=== PATIENT | male | born 1935 | race Caucasian/White ===

== ENCOUNTER → 2018-06-11 | Outpatient (CLI) | payer OTHER ==
[~2018-06-11] MED LIST: ASPI-650 PO; ATOR20TA PO; CARV12.52 PO; DOXA1TAB2 PO; ERGO500017 PO; FURO-92 PO; HYDR12.53 PO; LISI-170 PO; MAGNESIUM DR64 MG PO; MULT-750 PO; OMNIPAQUE 350 MG/ML, 100ML BOTTLE ONE; POTA20TA14 PO; SODI650T PO; SPIR25TA PO
== END | disposition home or self-care (01) ==
LOC: CFH 09:25
PROVIDERS: ATTEND Family Medicine
DX: N28.89 Other specified disorders of kidney and ureter (principal); K44.9 Diaphragmatic hernia without obstruction or gangrene; J90 Pleural effusion, not elsewhere classified; M47.9 Spondylosis, unspecified
CPT/HCPCS: 74178; 82565; Q9967

== ENCOUNTER 2019-10-02 16:30 | Inpatient (IN) | payer MEDICARE, OTHER ==
[~2019-10-02] VITALS: Ht 170.2 cm; Wt 77.4 kg
[~2019-10-02 16:30] MED LIST changes: +HYDR12.517 PO; -HYDR12.53 PO; -OMNIPAQUE 350 MG/ML, 100ML BOTTLE ONE
--- NOTE | 2019-10-02 17:00 | NUR ---
THIS IS A 84 YO MALE COMING IN FOR LOW SODIUM LEVELS AND FATIGUE. PATIENT HAD RECENT LABS DRAWN FROM PRIMARY CARE, THEY CALLED HIM TODAY AND TOLD HIM TO GO TO THE ER TO GET CHECKED OUT. PATIENT HAD HX OF CHF, TAKES BOTH SODIUM PILLS AT HOME AND LASIX. PATIETN HAS HX OF HTN, AND PRE-DIABETES. 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 CONTINUOUS SPO2 AT 97%, CYCLE BP Q1HR. FAMILY IN ROOM, PATIENT EDUCATED NEED FOR URINE SAMPLE. DENIES NEEDS AT THIS TIME, CALL LIGHT IN REACH.
[2019-10-02 17:44] LABS: BASOPHILS # (AUTO) 0.01 x10^3/uL (0-0.1); BASOPHILS % (AUTO) 0 % (0-1); EOSINOPHILS # (AUTO) 0.13 x10^3/uL (0-0.4); EOSINOPHILS % (AUTO) 3 % (1-7); LYMPHOCYTES # (AUTO) 0.43 x10^3/uL (1-3.4); LYMPHOCYTES % (AUTO) 9 % (22-44); MD NO; MEAN CORPUSCULAR HGB CONC 32.6 g/dL (33.2-36.2); MEAN CORPUSCULAR VOLUME 95.2 fL (81-97); MONOCYTES # (AUTO) 0.68 x10^3/uL (0.2-0.8); MONOCYTES % (AUTO) 14 % (2-9); NEUTROPHILS # (AUTO) 3.73 x10^3/uL (1.8-6.8); NEUTROPHILS % (AUTO) 75 % (42-75); PLATELET COUNT 147 x10^3/uL (130-400); RED BLOOD COUNT 4.03 x10^6/uL (4.38-5.82); RED CELL DISTRIBUTION WIDTH 15.4 % (9.4-14.8)
[2019-10-02 17:52] LABS: ALANINE AMINOTRANSFERASE 60 U/L (12-78); ALBUMIN 3.7 g/dL (3.4-5.0); ANION GAP 9 mmol/L (5-15); CALCIUM 8.4 mg/dL (8.5-10.1); CHLORIDE 91 mmol/L (98-107)
[2019-10-02 17:55] LABS: ALKALINE PHOSPHATASE 140 U/L (45-117); BILIRUBIN,TOTAL 1.1 mg/dL (0.2-1.0); CREATININE 1.03 mg/dL (0.7-1.3); TOTAL PROTEIN 6.6 g/dL (6.4-8.2)
[2019-10-02 18:07] LABS: MICROSCOPIC NOT IND
[2019-10-02 18:12] LABS: CULTURE INDICATED? NO
--- NOTE | 2019-10-02 18:32 | NUR ---
PATIENT RESTING ON GURNEY, RESPIRATIONS EVEN AND UNLABORED, FAMILY IN ROOM, DENIES NEEDS AT THIS TIME, CALL LIGHT IN REACH. AWAITING UA RESULTS.
[2019-10-02] MEDS ORDERED: SODI325T PO (18:54)
[2019-10-02] MEDS ORDERED: SODIUM CHLORIDE 0.9% 1,000 ML IV SCH (19:00)
--- NOTE | 2019-10-02 19:02 | NUR ---
IVF STARTED WITH DILAFLOW. AWAITING ADMIT ROOM ASSIGNMENT. CALL LIGHT IN REACH, VSS, DENIES NEEDS AT THIS TIME.
--- NOTE | 2019-10-02 20:10 | NUR ---
REPORT GIVEN TO PRESTON JORDAN. PLAN OF CARE DISCUSSED.
[2019-10-02] MEDS ORDERED: SPIRONOLACTONE 25 MG TABLET PO SCH (21:00)
[2019-10-02] MEDS ORDERED: DOCUSATE 100 MG CAPSULE PO PRN (21:00)
[2019-10-02] MEDS ORDERED: LISINOPRIL 20 MG TABLET PO SCH (21:00)
[2019-10-02] MEDS ORDERED: ONDANSETRON ODT 4 MG PO PRN (21:00)
[2019-10-02] MEDS ORDERED: ACETAMINOPHEN 325 MG TABLET PO PRN (21:00)
[2019-10-02] MEDS: ATORVASTATIN 20 MG TABLET PO SCH (21:00)
[2019-10-02] MEDS ORDERED: FUROSEMIDE 40 MG TABLET PO SCH (21:00)
[2019-10-02] MEDS ORDERED: ERGOCALCIFEROL 50,000 UNIT CAPSULE PO SCH (21:00)
[2019-10-02 21:46] VITALS: BP 110/67
[2019-10-02] MEDS: CARVEDILOL 12.5 MG TABLET PO SCH (22:03)
[2019-10-02] MEDS: ENOXAPARIN 40 MG/0.4 ML SQ SCH (22:04)
[2019-10-02] MEDS: SODIUM CHLORIDE 0.9% 1,000 ML IV SCH (22:04)
[2019-10-03 00:28] LABS: ANION GAP 6 mmol/L (5-15); CALCIUM 8.1 mg/dL (8.5-10.1); CHLORIDE 92 mmol/L (98-107); CREATININE 1.07 mg/dL (0.7-1.3)
[2019-10-03 01:40] LABS: POTASSIUM,URINE RANDOM 63 mmol/L; SODIUM,URINE RANDOM 22 mmol/L
[2019-10-03 01:41] LABS: CHLORIDE,URINE RANDOM < 10 mmol/L
[2019-10-03 01:56] VITALS: BP 105/67
[2019-10-03 02:54] LABS: OSMOLALITY,URINE 618 mOsm/kg (500-850)
[2019-10-03] MEDS: ASPIRIN 325 MG TABLET EC PO SCH (05:02)
[2019-10-03] MEDS: SODIUM CHLORIDE 0.9% 1,000 ML IV SCH (05:03)
[2019-10-03 05:43] LABS: BASOPHILS # (AUTO) 0.02 x10^3/uL (0-0.1); BASOPHILS % (AUTO) 1 % (0-1); EOSINOPHILS # (AUTO) 0.13 x10^3/uL (0-0.4); EOSINOPHILS % (AUTO) 4 % (1-7); LYMPHOCYTES # (AUTO) 0.53 x10^3/uL (1-3.4); LYMPHOCYTES % (AUTO) 15 % (22-44); MD NO; MEAN CORPUSCULAR HEMOGLOBIN 30.6 pg (27.5-34.5); MEAN CORPUSCULAR HGB CONC 33.1 g/dL (33.2-36.2); MEAN CORPUSCULAR VOLUME 92.5 fL (81-97); MEAN PLATELET VOLUME 7.6 fL (7.4-10.4); MONOCYTES # (AUTO) 0.57 x10^3/uL (0.2-0.8); MONOCYTES % (AUTO) 16 % (2-9); NEUTROPHILS # (AUTO) 2.32 x10^3/uL (1.8-6.8); NEUTROPHILS % (AUTO) 65 % (42-75); PLATELET COUNT 119 x10^3/uL (130-400); RED BLOOD COUNT 3.67 x10^6/uL (4.38-5.82); RED CELL DISTRIBUTION WIDTH 15.5 % (9.4-14.8)
[2019-10-03 05:56] LABS: ANION GAP 10 mmol/L (5-15); CHLORIDE 94 mmol/L (98-107); CREATININE 0.94 mg/dL (0.7-1.3)
[2019-10-03 06:54] VITALS: BP 111/67
[2019-10-03] MEDS: DOXAZOSIN 2MG TABLET PO SCH (09:00)
[2019-10-03] MEDS: LISINOPRIL 5 MG TABLET PO SCH ×2 (09:00→21:02)
[2019-10-03] MEDS ORDERED: DOXAZOSIN 2MG TABLET PO SCH (09:00)
[2019-10-03] MEDS: CARVEDILOL 12.5 MG TABLET PO SCH ×2 (09:00→21:02)
[2019-10-03 09:04] LABS: TROPONIN I 0.041 ng/mL (0.000-0.045)
[2019-10-03 09:25] LABS: TROPONIN I 0.037 ng/mL (0.000-0.045)
[2019-10-03 10:16] LABS: ANION GAP 10 mmol/L (5-15); CALCIUM 8.4 mg/dL (8.5-10.1); CHLORIDE 95 mmol/L (98-107); CREATININE 1.06 mg/dL (0.7-1.3)
[2019-10-03] MEDS: SODIUM BICARBONATE 650 MG TABLET PO SCH (11:41)
[2019-10-03] MEDS: MULTIVITAMIN 1 TABLET PO SCH (11:41)
[2019-10-03 14:12] VITALS: BP 120/67
[2019-10-03 15:39] LABS: ANION GAP 9 mmol/L (5-15); CALCIUM 8.3 mg/dL (8.5-10.1); CHLORIDE 95 mmol/L (98-107); CREATININE 1.07 mg/dL (0.7-1.3)
[2019-10-03 20:03] VITALS: BP 125/75
[2019-10-03 20:20] LABS: ANION GAP 6 mmol/L (5-15); CALCIUM 8.5 mg/dL (8.5-10.1); CHLORIDE 95 mmol/L (98-107)
[2019-10-03 20:22] LABS: CREATININE 1.09 mg/dL (0.7-1.3)
[2019-10-03] MEDS: ATORVASTATIN 20 MG TABLET PO SCH (21:00)
[2019-10-03] MEDS: ENOXAPARIN 40 MG/0.4 ML SQ SCH (21:02)
[2019-10-03] MEDS: TEMAZEPAM 15 MG CAPSULE PO PRN (23:03)
[2019-10-04 01:09] LABS: ANION GAP 6 mmol/L (5-15); CALCIUM 8.3 mg/dL (8.5-10.1); CHLORIDE 96 mmol/L (98-107); CREATININE 0.93 mg/dL (0.7-1.3)
[2019-10-04 01:12] VITALS: BP 102/60
[2019-10-04 05:18] LABS: BASOPHILS # (AUTO) 0.03 x10^3/uL (0-0.1); BASOPHILS % (AUTO) 1 % (0-1); EOSINOPHILS # (AUTO) 0.16 x10^3/uL (0-0.4); EOSINOPHILS % (AUTO) 4 % (1-7); LYMPHOCYTES # (AUTO) 0.61 x10^3/uL (1-3.4); LYMPHOCYTES % (AUTO) 15 % (22-44); MD NO; MEAN CORPUSCULAR HEMOGLOBIN 31.2 pg (27.5-34.5); MEAN CORPUSCULAR HGB CONC 33.1 g/dL (33.2-36.2); MEAN CORPUSCULAR VOLUME 94.2 fL (81-97); MEAN PLATELET VOLUME 8.1 fL (7.4-10.4); MONOCYTES # (AUTO) 0.61 x10^3/uL (0.2-0.8); MONOCYTES % (AUTO) 15 % (2-9); NEUTROPHILS # (AUTO) 2.79 x10^3/uL (1.8-6.8); NEUTROPHILS % (AUTO) 66 % (42-75); PLATELET COUNT 131 x10^3/uL (130-400)
[2019-10-04] MEDS: ASPIRIN 325 MG TABLET EC PO SCH (05:28)
[2019-10-04 05:29] LABS: ALANINE AMINOTRANSFERASE 44 U/L (12-78); ALBUMIN 3.4 g/dL (3.4-5.0); ANION GAP 10 mmol/L (5-15); CALCIUM 8.5 mg/dL (8.5-10.1); CHLORIDE 96 mmol/L (98-107); CREATININE 0.86 mg/dL (0.7-1.3)
[2019-10-04 05:32] LABS: ALKALINE PHOSPHATASE 114 U/L (45-117); BILIRUBIN,TOTAL 1.2 mg/dL (0.2-1.0); TOTAL PROTEIN 6.1 g/dL (6.4-8.2)
[2019-10-04 07:05] VITALS: BP 122/73
[2019-10-04] MEDS: SODIUM BICARBONATE 650 MG TABLET PO SCH (08:51)
[2019-10-04] MEDS: CARVEDILOL 12.5 MG TABLET PO SCH ×2 (08:52→21:14)
[2019-10-04] MEDS: LISINOPRIL 5 MG TABLET PO SCH ×2 (08:52→21:14)
[2019-10-04] MEDS: MULTIVITAMIN 1 TABLET PO SCH (08:52)
[2019-10-04] MEDS: DOXAZOSIN 2MG TABLET PO SCH (08:59)
[2019-10-04 14:03] VITALS: BP 96/58
[2019-10-04 20:18] VITALS: BP 121/70
[2019-10-04] MEDS: ATORVASTATIN 20 MG TABLET PO SCH (21:00)
[2019-10-04] MEDS: TEMAZEPAM 15 MG CAPSULE PO PRN (21:14)
[2019-10-04] MEDS: ENOXAPARIN 40 MG/0.4 ML SQ SCH (21:15)
[2019-10-05 03:02] VITALS: BP 131/74
[2019-10-05] MEDS: ASPIRIN 325 MG TABLET EC PO SCH (05:49)
[2019-10-05 06:52] LABS: BASOPHILS # (AUTO) 0.02 x10^3/uL (0-0.1); BASOPHILS % (AUTO) 0 % (0-1); EOSINOPHILS # (AUTO) 0.18 x10^3/uL (0-0.4); EOSINOPHILS % (AUTO) 4 % (1-7); LYMPHOCYTES # (AUTO) 0.66 x10^3/uL (1-3.4); LYMPHOCYTES % (AUTO) 15 % (22-44); MD NO; MEAN CORPUSCULAR HGB CONC 32.5 g/dL (33.2-36.2); MEAN CORPUSCULAR VOLUME 95.4 fL (81-97); MEAN PLATELET VOLUME 8.4 fL (7.4-10.4); MONOCYTES # (AUTO) 0.63 x10^3/uL (0.2-0.8); MONOCYTES % (AUTO) 14 % (2-9); NEUTROPHILS # (AUTO) 3.01 x10^3/uL (1.8-6.8); NEUTROPHILS % (AUTO) 67 % (42-75); PLATELET COUNT 129 x10^3/uL (130-400); RED BLOOD COUNT 4.07 x10^6/uL (4.38-5.82); RED CELL DISTRIBUTION WIDTH 15.6 % (9.4-14.8)
[2019-10-05 07:02] LABS: CHLORIDE 97 mmol/L (98-107)
[2019-10-05 07:09] LABS: ALANINE AMINOTRANSFERASE 40 U/L (12-78); ALBUMIN 3.6 g/dL (3.4-5.0); ALKALINE PHOSPHATASE 110 U/L (45-117); ANION GAP 7 mmol/L (5-15); BILIRUBIN,TOTAL 1.2 mg/dL (0.2-1.0); CALCIUM 8.8 mg/dL (8.5-10.1); CREATININE 0.94 mg/dL (0.7-1.3); TOTAL PROTEIN 6.4 g/dL (6.4-8.2)
[2019-10-05 07:10] VITALS: BP 146/84
[2019-10-05] MEDS ORDERED: ACETAMINOPHEN 325 MG TABLET PO PRN (08:30)
[2019-10-05] MEDS ORDERED: REGADENOSON 0.4 MG/5 ML SYRINGE ONE (08:30)
[2019-10-05] MEDS ORDERED: FUROSEMIDE 20 MG TABLET PO SCH (09:00)
[2019-10-05 10:39] VITALS: BP 143/91
[2019-10-05] MEDS: CARVEDILOL 12.5 MG TABLET PO SCH ×2 (10:50→21:01)
[2019-10-05] MEDS: MULTIVITAMIN 1 TABLET PO SCH (10:50)
[2019-10-05] MEDS: DOXAZOSIN 2MG TABLET PO SCH (10:51)
[2019-10-05] MEDS: FUROSEMIDE 20 MG TABLET PO SCH (10:51)
[2019-10-05] MEDS: LISINOPRIL 5 MG TABLET PO SCH ×2 (10:52→21:01)
[2019-10-05] MEDS ORDERED: FURO20TA3 PO ×2 (13:37)
[2019-10-05] MEDS ORDERED: HYDR-3341 PO ×2 (13:37)
[2019-10-05] MEDS ORDERED: LISI5TAB7 PO ×2 (13:37)
[2019-10-05 13:40] VITALS: BP 117/74
[2019-10-05 19:28] VITALS: BP 132/75
[2019-10-05 20:58] VITALS: BP 127/71
[2019-10-05] MEDS: ATORVASTATIN 20 MG TABLET PO SCH (21:00)
[2019-10-05] MEDS: ENOXAPARIN 40 MG/0.4 ML SQ SCH (21:00)
[2019-10-05] MEDS: TEMAZEPAM 15 MG CAPSULE PO PRN (22:56)
[2019-10-06 01:50] VITALS: BP 110/69
[2019-10-06] MEDS: ASPIRIN 325 MG TABLET EC PO SCH (05:33)
[2019-10-06 06:39] LABS: ALBUMIN 3.3 g/dL (3.4-5.0); ANION GAP 9 mmol/L (5-15); CALCIUM 8.5 mg/dL (8.5-10.1); CHLORIDE 97 mmol/L (98-107)
[2019-10-06 06:45] LABS: ALANINE AMINOTRANSFERASE 34 U/L (12-78); ALKALINE PHOSPHATASE 103 U/L (45-117); BILIRUBIN,TOTAL 1.2 mg/dL (0.2-1.0); CREATININE 0.76 mg/dL (0.7-1.3); TOTAL PROTEIN 6.1 g/dL (6.4-8.2)
[2019-10-06 08:06] VITALS: BP 144/53
[2019-10-06] MEDS: DOXAZOSIN 2MG TABLET PO SCH (09:18)
[2019-10-06] MEDS: MULTIVITAMIN 1 TABLET PO SCH (09:18)
[2019-10-06] MEDS: CARVEDILOL 12.5 MG TABLET PO SCH ×2 (09:18→21:54)
[2019-10-06] MEDS: FUROSEMIDE 20 MG TABLET PO SCH (09:19)
[2019-10-06] MEDS: LISINOPRIL 5 MG TABLET PO SCH ×2 (09:20→21:54)
[2019-10-06] MEDS ORDERED: SODIUM CHLORIDE 0.9% 1,000 ML IV SCH ×3 (10:30→11:00)
[2019-10-06 13:00] VITALS: BP 125/72
[2019-10-06] MEDS ORDERED: LIDOCAINE-MPF 1%, 5ML ONE (14:08)
[2019-10-06] MEDS ORDERED: FENTANYL PF 100 MCG/2ML ONE (14:08)
[2019-10-06] MEDS ORDERED: MIDAZOLAM 1 MG/ML, 2ML ONE (14:08)
[2019-10-06] MEDS ORDERED: VERAPAMIL 2.5 MG/ML, 2ML ONE (14:08)
[2019-10-06] MEDS ORDERED: HEPARIN 1,000 UNITS/ML, 10ML ONE (14:08)
[2019-10-06] MEDS ORDERED: LIDOCAINE 1%, 20ML ONE (14:57)
[2019-10-06] MEDS ORDERED: BIVALIRUDIN 250 MG ONE (15:13)
[2019-10-06] MEDS ORDERED: TICAGRELOR 90 MG TABLET ONE (15:19)
[2019-10-06] MEDS ORDERED: LORazepam 2 MG/ML, 1ML IVPush ONE ×2 (17:00)
[2019-10-06] MEDS ORDERED: ALBUTEROL/IPRATROPIUM 2.5MG/0.5MG, 3 ML ONE (17:09)
[2019-10-06] MEDS ORDERED: FUROSEMIDE 20 MG/2 ML IV PRN (17:30)
[2019-10-06] MEDS ORDERED: CLOPIDOGREL 75 MG TABLET PO ONE (17:30)
[2019-10-06] MEDS ORDERED: ALBUTEROL/IPRATROPIUM 2.5MG/0.5MG, 3 ML NPPB PRN (18:00)
[2019-10-06 18:46] VITALS: BP 135/74
[2019-10-06] MEDS: ENOXAPARIN 40 MG/0.4 ML SQ SCH (20:26)
[2019-10-06] MEDS: ATORVASTATIN 40 MG TABLET PO SCH (21:00)
[2019-10-06] MEDS ORDERED: TICAGRELOR 90 MG TABLET PO ONE (21:00)
[2019-10-06 21:11] VITALS: BP 143/79
[2019-10-06 21:51] VITALS: BP 128/77
[2019-10-06] MEDS: TEMAZEPAM 15 MG CAPSULE PO PRN (23:07)
[2019-10-07] VITALS (7 sets, daily range): BP systolic 95–151; BP diastolic 59–88
[2019-10-07 05:01] LABS: ANION GAP 9 mmol/L (5-15); CALCIUM 8.6 mg/dL (8.5-10.1); CHLORIDE 97 mmol/L (98-107); CHOLESTEROL, TOTAL 131 mg/dL (140-239); CREATININE 0.88 mg/dL (0.7-1.3); TRIGLYCERIDES 63 mg/dL (50-200); VLDL CHOLESTEROL 13 mg/dL (0-25)
[2019-10-07 05:05] LABS: CHOL/HDL RATIO 1.9; HDL CHOL % 53 % (26-37); HDL CHOLESTEROL (DIRECT) 70 mg/dL (40-60); LDL CHOLESTEROL,CALCULATED 48 mg/dL (54-169); LDL/HDL RATIO 0.7 (0.5-3.0)
[2019-10-07] MEDS: CARVEDILOL 12.5 MG TABLET PO SCH (09:34)
[2019-10-07] MEDS: DOXAZOSIN 2MG TABLET PO SCH (09:35)
[2019-10-07] MEDS: ASPIRIN 81 MG TABLET EC PO SCH (09:36)
[2019-10-07] MEDS: LISINOPRIL 5 MG TABLET PO SCH ×2 (09:36→14:29)
[2019-10-07] MEDS: MULTIVITAMIN 1 TABLET PO SCH (09:37)
[2019-10-07] MEDS: FUROSEMIDE 20 MG TABLET PO SCH (09:37)
[2019-10-07] MEDS: CLOPIDOGREL 75 MG TABLET PO SCH (09:37)
[2019-10-07] MEDS ORDERED: FUROSEMIDE 40 MG/4 ML IV ONE (14:00)
[2019-10-07] MEDS: CARVEDILOL 25 MG TABLET PO SCH (17:50)
[2019-10-07] MEDS: ATORVASTATIN 40 MG TABLET PO SCH (21:00)
[2019-10-07] MEDS: ENOXAPARIN 40 MG/0.4 ML SQ SCH (21:42)
[2019-10-07] MEDS: TEMAZEPAM 15 MG CAPSULE PO PRN (22:53)
[2019-10-08 00:27] VITALS: BP 98/58
[2019-10-08] MEDS: TEMAZEPAM 15 MG CAPSULE PO PRN ×2 (02:30→23:23)
[2019-10-08 05:27] LABS: ANION GAP 6 mmol/L (5-15); CALCIUM 8.3 mg/dL (8.5-10.1); CHLORIDE 97 mmol/L (98-107); CREATININE 0.84 mg/dL (0.7-1.3)
[2019-10-08 06:17] VITALS: BP 117/79
[2019-10-08] MEDS: CARVEDILOL 25 MG TABLET PO SCH ×2 (06:20→18:04)
[2019-10-08 07:19] VITALS: BP 110/67
[2019-10-08 09:45] VITALS: BP 103/63
[2019-10-08] MEDS: LISINOPRIL 5 MG TABLET PO SCH (09:45)
[2019-10-08] MEDS: DOXAZOSIN 2MG TABLET PO SCH (09:45)
[2019-10-08] MEDS: CLOPIDOGREL 75 MG TABLET PO SCH (09:58)
[2019-10-08] MEDS: ASPIRIN 81 MG TABLET EC PO SCH (09:58)
[2019-10-08] MEDS: MULTIVITAMIN 1 TABLET PO SCH (09:58)
[2019-10-08 13:56] VITALS: BP 105/62
[2019-10-08 20:08] VITALS: BP 100/64
[2019-10-08] MEDS: ENOXAPARIN 40 MG/0.4 ML SQ SCH (20:46)
[2019-10-08] MEDS: ATORVASTATIN 40 MG TABLET PO SCH (20:46)
[2019-10-09 00:44] VITALS: BP 102/59
[2019-10-09 01:31] LABS: ANION GAP 5 mmol/L (5-15); CALCIUM 8.4 mg/dL (8.5-10.1); CHLORIDE 97 mmol/L (98-107)
[2019-10-09] MEDS: CARVEDILOL 25 MG TABLET PO SCH (05:27)
[2019-10-09 06:37] VITALS: BP 115/72
[2019-10-09] MEDS ORDERED: POTASSIUM CHLORIDE 20 MEQ TAB.ER.PRT PO SCH (08:00)
[2019-10-09] MEDS: CLOPIDOGREL 75 MG TABLET PO SCH (08:12)
[2019-10-09] MEDS: ASPIRIN 81 MG TABLET EC PO SCH (08:13)
[2019-10-09] MEDS: MULTIVITAMIN 1 TABLET PO SCH (08:13)
[2019-10-09] MEDS: LISINOPRIL 5 MG TABLET PO SCH (08:14)
[2019-10-09] MEDS: DOXAZOSIN 2MG TABLET PO SCH (08:14)
[2019-10-09] MEDS ORDERED: FUROSEMIDE 40 MG TABLET PO SCH (09:00)
[2019-10-09] MEDS ORDERED: ATOR40TA78 PO (11:00)
[2019-10-09] MEDS ORDERED: CLOP75TA PO (11:00)
[2019-10-09] MEDS ORDERED: DOXA2TAB9 PO (11:00)
[2019-10-09] MEDS ORDERED: LISI5TAB7 PO (11:00)
[2019-10-09] MEDS ORDERED: FURO40TA6 PO (11:00)
[2019-10-09] MEDS ORDERED: ASPI81TA45 PO (11:00)
== END 2019-10-09 12:31 | disposition home or self-care (01) | DRG 246 ==
LOC: ED 19:00 → EDIP 20:06 → 4EST 20:37 → 5SO 10-06 15:58 → DCLOUNGE 10-09 12:10
PROVIDERS: ADMIT Internal Medicine; ATTEND Internal Medicine
PROC: 027035Z Dilation of Coronary Artery, One Artery with Two Drug-eluting Intraluminal Devices, Percutaneous Approach (ICD-10-PCS; principal; 2019-10-06)
PROC: 4A023N8 Measurement of Cardiac Sampling and Pressure, Bilateral, Percutaneous Approach (ICD-10-PCS; 2019-10-06)
PROC: B211YZZ Fluoroscopy of Multiple Coronary Arteries using Other Contrast (ICD-10-PCS; 2019-10-06)
PROC: B215YZZ Fluoroscopy of Left Heart using Other Contrast (ICD-10-PCS; 2019-10-06)
DX: I13.0 Hypertensive heart and chronic kidney disease with heart failure and stage 1 through stage 4 chronic kidney disease, or unspecified chronic kidney disease (principal); I50.33 Acute on chronic diastolic (congestive) heart failure; R17 Unspecified jaundice; I47.2 Ventricular tachycardia; E87.1 Hypo-osmolality and hyponatremia; I25.10 Atherosclerotic heart disease of native coronary artery without angina pectoris; D64.9 Anemia, unspecified; N18.3 Chronic kidney disease, stage 3 (moderate); E11.22 Type 2 diabetes mellitus with diabetic chronic kidney disease; I50.82 Biventricular heart failure; I42.9 Cardiomyopathy, unspecified; I27.29 Other secondary pulmonary hypertension; N40.0 Benign prostatic hyperplasia without lower urinary tract symptoms; R74.0 Nonspecific elevation of levels of transaminase and lactic acid dehydrogenase [LDH]; I08.1 Rheumatic disorders of both mitral and tricuspid valves; E78.5 Hyperlipidemia, unspecified; D69.6 Thrombocytopenia, unspecified; I27.81 Cor pulmonale (chronic); F12.10 Cannabis abuse, uncomplicated; F41.9 Anxiety disorder, unspecified; Z85.828 Personal history of other malignant neoplasm of skin; Z79.899 Other long term (current) drug therapy
CPT/HCPCS: 36415; 71046; 78452; 80048; 80053; 80061; 81003; 82436; 83735; 83880; 83930; 83935; 84100; 84133; 84300; 84484; 85014; 85018; 85025; 93005; 93017; 93306; 93460; 94640; 99156; 99157; C1760; C1769; C1894; C9600; G0378; J0583; J1644; J1650; J1940; J2250; J2785; J3010; A9502; C1725; C1874; C1887; J2060; J7030; Q9967

== ENCOUNTER 2019-11-06 13:59 | Observation (INO) | payer MEDICARE ==
[~2019-11-06] VITALS: Ht 170.2 cm; Wt 73.0 kg
[~2019-11-06 13:59] MED LIST changes: +ASPI81TA45 PO; +ATOR40TA78 PO; +CLOP75TA PO; +DOXA2TAB9 PO; +FURO20TA3 PO; +FURO40TA6 PO; +HYDR-3341 PO; +LISI5TAB7 PO; +SODI325T PO
--- NOTE | 2019-11-06 14:35 | NUR ---
PATIENT ABULATED TO THE BATHROOM USING A CANE WITH A STEADY GAIT. URINE COLLECTED.
--- NOTE | 2019-11-06 14:43 | NUR ---
THIS IS AN 84 YO M WHO WAS ADVISED BY HIS PRIMARY CARE TO COME IN TO THE ED BECAUSE THEY "DIDNT LIKE MY RHYTHM". PATIENT HAS NO COMPLAINTS AT THIS TIME. DENIES CP/SOB. STATES THAT HE HAD 2 STENTS PLACED IN SEPTEMBER. PATIENTS RESPIRATIONS ARE EVEN AND UNLABORED. PATIENTS VS STABLE. PATIENT IS IN NO ACUTE DISTRESS. RESTING ON GURNEY WITH FAMILY AT BEDSIDE. DENIES FURTHER NEEDS AT THIS TIME.
[2019-11-06 15:31] LABS: ALBUMIN 3.6 g/dL (3.4-5.0); ANION GAP 7 mmol/L (5-15); CALCIUM 8.8 mg/dL (8.5-10.1); CHLORIDE 99 mmol/L (98-107); CREATININE 1.13 mg/dL (0.7-1.3)
[2019-11-06 15:32] LABS: BASOPHILS # (AUTO) 0.02 x10^3/uL (0-0.1); BASOPHILS % (AUTO) 1 % (0-1); EOSINOPHILS # (AUTO) 0.17 x10^3/uL (0-0.4); EOSINOPHILS % (AUTO) 4 % (1-7); LYMPHOCYTES # (AUTO) 0.48 x10^3/uL (1-3.4); LYMPHOCYTES % (AUTO) 12 % (22-44); MD NO; MEAN CORPUSCULAR HGB CONC 33.5 g/dL (33.2-36.2); MEAN CORPUSCULAR VOLUME 92.5 fL (81-97); MONOCYTES # (AUTO) 0.55 x10^3/uL (0.2-0.8); MONOCYTES % (AUTO) 14 % (2-9); NEUTROPHILS # (AUTO) 2.87 x10^3/uL (1.8-6.8); NEUTROPHILS % (AUTO) 70 % (42-75); PLATELET COUNT 146 x10^3/uL (130-400); RED CELL DISTRIBUTION WIDTH 16.2 % (9.4-14.8)
[2019-11-06 15:35] LABS: TROPONIN I 0.055 ng/mL (0.000-0.045)
[2019-11-06] MEDS ORDERED: ASPIRIN 81 MG TABLET CHEW ONE (16:25)
[2019-11-06] MEDS ORDERED: ASPIRIN 81 MG TABLET CHEW PO ONE (16:30)
--- NOTE | 2019-11-06 16:56 | NUR ---
PATIENT PUT ON HOSPITAL BED FOR COMFORT. VS UPDATED AND WNL. DINNER TRAY ORDERED AT THE BEDSIDE ORDER OF DR. YAN, ADMITTING PROVIDER. SON AT BEDSIDE. URINAL PROVIDED. CALL LIGHT WITHIN REACH. PT RESTING WITH NO COMPLAINTS.
[2019-11-06] MEDS ORDERED: ERGOCALCIFEROL 50,000 UNIT CAPSULE PO SCH (17:30)
[2019-11-06] MEDS ORDERED: ACETAMINOPHEN 325 MG TABLET PO PRN (17:30)
[2019-11-06] MEDS ORDERED: NITROGLYCERIN 0.4 MG BOTTLE (25 TABS) SL PRN (17:30)
--- NOTE | 2019-11-06 17:40 | NUR ---
DIET TRAY DELIVERED. PATIENT SITTING UP I BALAEY EATING WITH FAMILY AT BEDSIDE. DENIES FURTHER NEEDS AT THIS TIME.
[2019-11-06 17:48] LABS: TROPONIN I 0.051 ng/mL (0.000-0.045)
--- NOTE | 2019-11-06 17:53 | NUR ---
PATIENT STATES HE TOOK HIS Q WEEKLY VITAMIN D3 LAST SUNDAY, 11/01. CALLED PHARMACY TO RE-TIME ORDER. PER PHARMACY, THIS MUST BE DONE MY ME. CHANGED ORDER START TIME IN [facility] TO START THIS SUNDAY.
--- NOTE | 2019-11-06 18:55 | NUR ---
REPORT FROM TOYA JOHNSTON. ASSUMING PT CARE AT THIS TIME
[2019-11-06] MEDS ORDERED: ATORVASTATIN 40 MG TABLET PO SCH (21:00)
[2019-11-06] MEDS: CARVEDILOL 12.5 MG TABLET PO SCH (21:06)
[2019-11-06] MEDS: SPIRONOLACTONE 25 MG TABLET PO SCH (21:07)
--- NOTE | 2019-11-06 21:07 | NUR ---
PT MEDICATED PER DEC, PROVIDED WITH NONSKID SOCKS FOR SAFETY. ASSISTED WITH URINAL USE AND BACK TO BED. NADN. VSS. CALL LIGHT WITHIN REACH. PT EDUCATED ON USE OF HOSPITAL BED FOR COMFORT AND EDUCATED TO CALL BEFORE WALKING TO RESTROOM. PT VERBALIZED UNDERSTANDING AND AGREEMENT
[2019-11-06 23:56] LABS: TROPONIN I 0.062 ng/mL (0.000-0.045)
--- NOTE | 2019-11-07 02:16 | NUR ---
PT RESTING ON HOSPITAL BED, LIGHTS DIMMED, VITALS UPDATED, PT PROVIDED WITH SNACKS REQUESTED. NO FURTHER NEEDS AT THIS TIME
--- NOTE | 2019-11-07 04:24 | NUR ---
PT SLEEPING ON HOSPITAL BED, LIGHTS DIMMED, RESP EVEN AND UNLABORED.
[2019-11-07 04:43] LABS: BASOPHILS # (AUTO) 0.01 x10^3/uL (0-0.1); BASOPHILS % (AUTO) 0 % (0-1); EOSINOPHILS # (AUTO) 0.24 x10^3/uL (0-0.4); EOSINOPHILS % (AUTO) 5 % (1-7); LYMPHOCYTES # (AUTO) 0.69 x10^3/uL (1-3.4); LYMPHOCYTES % (AUTO) 15 % (22-44); MD NO; MEAN CORPUSCULAR HGB CONC 33.8 g/dL (33.2-36.2); MEAN CORPUSCULAR VOLUME 91.8 fL (81-97); MEAN PLATELET VOLUME 7.7 fL (7.4-10.4); MONOCYTES # (AUTO) 0.65 x10^3/uL (0.2-0.8); MONOCYTES % (AUTO) 14 % (2-9); NEUTROPHILS # (AUTO) 2.96 x10^3/uL (1.8-6.8); NEUTROPHILS % (AUTO) 65 % (42-75); PLATELET COUNT 142 x10^3/uL (130-400); RED BLOOD COUNT 3.59 x10^6/uL (4.38-5.82); RED CELL DISTRIBUTION WIDTH 15.5 % (9.4-14.8)
[2019-11-07 04:54] LABS: ANION GAP 5 mmol/L (5-15); CALCIUM 8.3 mg/dL (8.5-10.1); CHLORIDE 101 mmol/L (98-107); CREATININE 1.04 mg/dL (0.7-1.3)
--- NOTE | 2019-11-07 06:55 | NUR ---
REPORT RECEIVED FROM KHURRAM JOHNSTON.
--- NOTE | 2019-11-07 07:04 | NUR ---
PT AMB TO BR WITH STEADY GAIT.
--- NOTE | 2019-11-07 08:15 | NUR ---
meal tray provided at this time.
[2019-11-07] MEDS ORDERED: LISINOPRIL 5 MG TABLET ONE (08:29)
[2019-11-07] MEDS ORDERED: CLOPIDOGREL 75 MG TABLET ONE (08:30)
[2019-11-07] MEDS ORDERED: CARVEDILOL 3.125 MG TABLET ONE (08:30)
[2019-11-07] MEDS ORDERED: FUROSEMIDE 40 MG TABLET ONE (08:30)
[2019-11-07] MEDS ORDERED: ASPIRIN 81 MG TABLET EC ONE (08:30)
--- NOTE | 2019-11-07 08:34 | NUR ---
meds ordered from pharmacy at this time.
[2019-11-07] MEDS: CARVEDILOL 12.5 MG TABLET PO SCH (09:00)
[2019-11-07] MEDS ORDERED: FUROSEMIDE 40 MG TABLET PO SCH (09:00)
[2019-11-07] MEDS ORDERED: ASPIRIN 81 MG TABLET EC PO SCH (09:00)
[2019-11-07] MEDS ORDERED: CLOPIDOGREL 75 MG TABLET PO SCH (09:00)
[2019-11-07] MEDS ORDERED: LISINOPRIL 5 MG TABLET PO SCH (09:00)
[2019-11-07] MEDS ORDERED: DOXAZOSIN 2MG TABLET PO SCH (09:00)
[2019-11-07] MEDS: SPIRONOLACTONE 25 MG TABLET PO SCH (09:06)
--- NOTE | 2019-11-07 09:10 | NUR ---
PT MEDICATED PER EMAR. PT TOLERATED WELL.
--- NOTE | 2019-11-07 10:01 | NUR ---
RECEIVED REPORT FROM PRESTON QUESADA. [facility]
--- NOTE | 2019-11-07 10:01 | NUR ---
REPORT GIVEN TO FAUSTINO JOHNSTON.
--- NOTE | 2019-11-07 11:41 | NUR ---
FAMILY IS BEDSIDE. PT REQUESTS TISSUE. TISSUE PROVIDED.
[2019-11-07 12:44] VITALS: BP 123/71
--- NOTE | 2019-11-07 12:45 | NUR ---
PT REQUESTING TO TALK TO DOCTOR. FOOD TRAY ORDERED.
[2019-11-08] MEDS ORDERED: ERGOCALCIFEROL 50,000 UNIT CAPSULE PO SCH (17:30)
== END 2019-11-07 14:30 | disposition home or self-care (01) ==
LOC: ED 16:09 → INTOOBSV 16:10 → EDIP 16:10 → ED 16:16 → DCLOUNGE 11-07 14:15
PROVIDERS: ADMIT Hospitalist; ATTEND Hospitalist
DX: I49.9 Cardiac arrhythmia, unspecified (principal); I42.9 Cardiomyopathy, unspecified; E87.1 Hypo-osmolality and hyponatremia; F12.10 Cannabis abuse, uncomplicated; I11.0 Hypertensive heart disease with heart failure; I50.9 Heart failure, unspecified; Z95.0 Presence of cardiac pacemaker; Z85.828 Personal history of other malignant neoplasm of skin; Z79.82 Long term (current) use of aspirin; Z79.899 Other long term (current) drug therapy
CPT/HCPCS: 36415; 71045; 80048; 82040; 83880; 84484; 85025; 93005; 99284; G0378

== ENCOUNTER 2020-02-16 11:03 | Inpatient (IN) | payer MEDICARE ==
[~2020-02-16] VITALS: Ht 167.6 cm; Wt 84.5 kg
--- NOTE | 2020-02-16 11:40 | NUR ---
ANCILLARY SPECIALIST: PT AMBULATORY WITH STEADY GAIT TO ROOM AT THIS TIME.
[2020-02-16] MEDS ORDERED: CLOP75TA52 PO (11:57)
[2020-02-16] MEDS ORDERED: FURO20TA3 PO (11:58)
[2020-02-16] MEDS ORDERED: DOCU-180 PO (11:59)
[2020-02-16] MEDS ORDERED: SODIUM CHLORIDE FLUSH 10ML SYR IVF ONE (12:00)
--- NOTE | 2020-02-16 12:12 | NUR ---
FIRST CONTACT WITH PT. PT C/O BILATERAL TESTICLE AND BILATERAL LEG SWELLING WITH WEEPING OF EXTREMITIES STARTED 3 WEEKS AGO. WEIGHT GAIN OF 20 POUNDS DESPITE USE OF DIURETICS. SOB WITH EXERTION. PT DENIES COUGH/SORE THROAT. PT'S AOX4. RESPS EVEN AND UNLABORED. ALL MONITORS IN PLACE. CALL LIGHT WITHIN REACH. RAILS UP X2. URINAL AT BEDSIDE. EDMD AT BEDSIDE TO EVALUATE AT THIS TIME.
--- NOTE | 2020-02-16 12:13 | NUR ---
PIV EST ON R FOREARM WITH NO COMPLICATIONS. PT TOLERATED WELL.
--- NOTE | 2020-02-16 12:30 | NUR ---
PT'S DAUGHTER:[phone]
[2020-02-16 12:32] LABS: BASOPHILS # (AUTO) 0.05 x10^3/uL (0-0.1); BASOPHILS % (AUTO) 1 % (0-1); EOSINOPHILS % (AUTO) 2 % (1-7); LYMPHOCYTES # (AUTO) 0.47 x10^3/uL (1-3.4); LYMPHOCYTES % (AUTO) 8 % (22-44); MD NO; MEAN CORPUSCULAR HEMOGLOBIN 30.7 pg (27.5-34.5); MEAN CORPUSCULAR VOLUME 93.1 fL (81-97); MEAN PLATELET VOLUME 8.9 fL (7.4-10.4); MONOCYTES # (AUTO) 0.67 x10^3/uL (0.2-0.8); MONOCYTES % (AUTO) 11 % (2-9); NEUTROPHILS # (AUTO) 4.98 x10^3/uL (1.8-6.8); NEUTROPHILS % (AUTO) 79 % (42-75); PLATELET COUNT 140 x10^3/uL (130-400); RED BLOOD COUNT 4.66 x10^6/uL (4.38-5.82); RED CELL DISTRIBUTION WIDTH 15.4 % (9.4-14.8)
[2020-02-16 12:43] LABS: ALANINE AMINOTRANSFERASE 35 U/L (12-78); ALBUMIN 3.2 g/dL (3.4-5.0); ANION GAP 8 mmol/L (5-15); CALCIUM 8.6 mg/dL (8.5-10.1); CHLORIDE 99 mmol/L (98-107); CREATININE 1.73 mg/dL (0.7-1.3)
[2020-02-16 12:47] LABS: ALKALINE PHOSPHATASE 185 U/L (45-117); BILIRUBIN,TOTAL 1.3 mg/dL (0.2-1.0); TOTAL PROTEIN 6.4 g/dL (6.4-8.2); TROPONIN I 0.107 ng/mL (0.000-0.045)
--- NOTE | 2020-02-16 13:17 | NUR ---
HOSPITALIST AT BEDSIDE AT THIS TIME.
[2020-02-16] MEDS ORDERED: ACETAMINOPHEN 325 MG TABLET PO PRN (13:30)
[2020-02-16] MEDS ORDERED: hydrALAzine 20 MG/ML, 1ML IVPush PRN (13:30)
[2020-02-16] MEDS ORDERED: BACLOFEN 10 MG TABLET PO PRN (13:30)
[2020-02-16] MEDS ORDERED: ONDANSETRON 2MG/ML, 2ML IVPush PRN (13:30)
[2020-02-16] MEDS ORDERED: morphine SULFATE 10 MG/ML, 1ML IVPush PRN (13:30)
[2020-02-16] MEDS ORDERED: ONDANSETRON ODT 4 MG PO PRN (13:30)
[2020-02-16] MEDS ORDERED: HEPARIN 5,000 UNITS/ML, 1ML ONE (13:41)
[2020-02-16] MEDS: HEPARIN 5,000 UNITS/ML, 1ML SQ SCH ×2 (13:43→20:55)
--- NOTE | 2020-02-16 13:45 | NUR ---
pt medicated per emar. pt tolerated well. pt's aox4. resps even and unlabored.
--- NOTE | 2020-02-16 13:46 | NUR ---
us at bedside at this time.
--- NOTE | 2020-02-16 13:55 | NUR ---
REPORT GIVEN TO YENNI RN. ALL QUESTIONS ANSWERED.
[2020-02-16 14:44] VITALS: BP 112/75
[2020-02-16 15:02] VITALS: BP 103/70
[2020-02-16] MEDS: FUROSEMIDE 40 MG/4 ML IV SCH ×2 (15:05→20:55)
[2020-02-16] MEDS: CARVEDILOL 3.125 MG TABLET PO SCH (17:22)
[2020-02-16 18:30] LABS: MICROSCOPIC INDICATED
[2020-02-16 18:32] LABS: CULTURE INDICATED? YES
[2020-02-16 19:25] LABS: TROPONIN I 0.102 ng/mL (0.000-0.045)
[2020-02-16 20:37] VITALS: BP 110/72
[2020-02-16 20:49] LABS: CHLORIDE,URINE RANDOM 31 mmol/L; POTASSIUM,URINE RANDOM 34 mmol/L; SODIUM,URINE RANDOM 16 mmol/L
[2020-02-16] MEDS: ATORVASTATIN 40 MG TABLET PO SCH (20:55)
[2020-02-17] VITALS (7 sets, daily range): BP systolic 89–109; BP diastolic 56–72
[2020-02-17] MEDS: CARVEDILOL 3.125 MG TABLET PO SCH ×2 (05:49→17:29)
[2020-02-17] MEDS: HEPARIN 5,000 UNITS/ML, 1ML SQ SCH ×3 (05:49→22:07)
[2020-02-17 06:12] LABS: BASOPHILS # (AUTO) 0.01 x10^3/uL (0-0.1); BASOPHILS % (AUTO) 0 % (0-1); EOSINOPHILS # (AUTO) 0.12 x10^3/uL (0-0.4); EOSINOPHILS % (AUTO) 2 % (1-7); LYMPHOCYTES # (AUTO) 0.58 x10^3/uL (1-3.4); LYMPHOCYTES % (AUTO) 9 % (22-44); MD NO; MEAN CORPUSCULAR HEMOGLOBIN 30.5 pg (27.5-34.5); MEAN CORPUSCULAR HGB CONC 32.6 g/dL (33.2-36.2); MEAN CORPUSCULAR VOLUME 93.7 fL (81-97); MEAN PLATELET VOLUME 8.9 fL (7.4-10.4); MONOCYTES # (AUTO) 0.66 x10^3/uL (0.2-0.8); MONOCYTES % (AUTO) 10 % (2-9); NEUTROPHILS # (AUTO) 5.25 x10^3/uL (1.8-6.8); NEUTROPHILS % (AUTO) 79 % (42-75); PLATELET COUNT 134 x10^3/uL (130-400); RED BLOOD COUNT 4.47 x10^6/uL (4.38-5.82); RED CELL DISTRIBUTION WIDTH 15.3 % (9.4-14.8)
[2020-02-17 06:23] LABS: ANION GAP 7 mmol/L (5-15); CALCIUM 8.7 mg/dL (8.5-10.1); CHLORIDE 100 mmol/L (98-107); CREATININE 1.67 mg/dL (0.7-1.3)
[2020-02-17] MEDS: DOCUSATE 100 MG CAPSULE PO SCH (09:17)
[2020-02-17] MEDS: CLOPIDOGREL 75 MG TABLET PO SCH (09:17)
[2020-02-17] MEDS: ASPIRIN 81 MG TABLET EC PO SCH (09:17)
[2020-02-17] MEDS ORDERED: FUROSEMIDE 20 MG/2 ML IV ONE (09:30)
[2020-02-17] MEDS ORDERED: FUROSEMIDE 40 MG/4 ML IV SCH ×2 (11:18→16:00)
[2020-02-17] MEDS: FUROSEMIDE 20 MG/2 ML IV SCH ×2 (15:45→22:06)
[2020-02-17] MEDS: ATORVASTATIN 40 MG TABLET PO SCH (22:06)
[2020-02-18 03:47] VITALS: BP 106/68
[2020-02-18] MEDS: FUROSEMIDE 20 MG/2 ML IV SCH ×4 (03:48→21:14)
[2020-02-18] MEDS: HEPARIN 5,000 UNITS/ML, 1ML SQ SCH ×3 (05:30→22:31)
[2020-02-18] MEDS: CARVEDILOL 3.125 MG TABLET PO SCH ×2 (05:50→17:49)
[2020-02-18 06:56] LABS: CHLORIDE 101 mmol/L (98-107)
[2020-02-18 07:01] LABS: ALANINE AMINOTRANSFERASE 31 U/L (12-78); ALBUMIN 2.8 g/dL (3.4-5.0); ALKALINE PHOSPHATASE 163 U/L (45-117); ANION GAP 7 mmol/L (5-15); BILIRUBIN,TOTAL 1.5 mg/dL (0.2-1.0); CALCIUM 8.4 mg/dL (8.5-10.1); CREATININE 1.63 mg/dL (0.7-1.3); TOTAL PROTEIN 5.8 g/dL (6.4-8.2)
[2020-02-18] MEDS ORDERED: METOLAZONE 5 MG TABLET PO SCH (09:00)
[2020-02-18 09:21] VITALS: BP 105/70
[2020-02-18] MEDS: CLOPIDOGREL 75 MG TABLET PO SCH (09:33)
[2020-02-18] MEDS: ASPIRIN 81 MG TABLET EC PO SCH (09:33)
[2020-02-18] MEDS: TAMSULOSIN 0.4 MG CAP.ER.24H PO SCH (09:33)
[2020-02-18] MEDS: DOCUSATE 100 MG CAPSULE PO SCH (09:33)
[2020-02-18 15:20] VITALS: BP 102/66
[2020-02-18 18:59] VITALS: BP 97/63
[2020-02-18] MEDS: ATORVASTATIN 40 MG TABLET PO SCH (21:14)
[2020-02-19 01:45] VITALS: BP 104/72
[2020-02-19] MEDS: FUROSEMIDE 20 MG/2 ML IV SCH ×3 (03:25→17:20)
[2020-02-19 05:03] LABS: ALBUMIN 2.9 g/dL (3.4-5.0); ANION GAP 8 mmol/L (5-15); CALCIUM 8.5 mg/dL (8.5-10.1); CHLORIDE 100 mmol/L (98-107)
[2020-02-19 05:07] LABS: ALANINE AMINOTRANSFERASE 34 U/L (12-78); ALKALINE PHOSPHATASE 172 U/L (45-117); BILIRUBIN,TOTAL 1.4 mg/dL (0.2-1.0); CREATININE 1.53 mg/dL (0.7-1.3); TOTAL PROTEIN 5.9 g/dL (6.4-8.2)
[2020-02-19 06:25] VITALS: BP 104/63
[2020-02-19] MEDS: CARVEDILOL 3.125 MG TABLET PO SCH ×2 (06:36→21:59)
[2020-02-19] MEDS: HEPARIN 5,000 UNITS/ML, 1ML SQ SCH (06:37)
[2020-02-19] MEDS ORDERED: METOLAZONE 5 MG TABLET ONE (09:49)
[2020-02-19] MEDS: POTASSIUM CHLORIDE 20 MEQ TAB.ER.PRT PO SCH ×2 (09:52→17:20)
[2020-02-19] MEDS: ASPIRIN 81 MG TABLET EC PO SCH (09:52)
[2020-02-19] MEDS: CLOPIDOGREL 75 MG TABLET PO SCH (09:53)
[2020-02-19] MEDS: TAMSULOSIN 0.4 MG CAP.ER.24H PO SCH (09:53)
[2020-02-19] MEDS: METOLAZONE 10 MG TABLET PO SCH (09:53)
[2020-02-19] MEDS: DOCUSATE 100 MG CAPSULE PO SCH (09:53)
[2020-02-19 13:16] VITALS: BP 103/63
[2020-02-19 15:13] LABS: CULTURE INDICATED? YES; MICROSCOPIC INDICATED
[2020-02-19 17:18] VITALS: BP 90/57
[2020-02-19 19:10] VITALS: BP 99/59
[2020-02-19 21:49] VITALS: BP 90/57
[2020-02-19] MEDS: ATORVASTATIN 40 MG TABLET PO SCH (21:51)
[2020-02-20] VITALS (7 sets, daily range): BP systolic 96–108; BP diastolic 61–72
[2020-02-20] MEDS: FUROSEMIDE 20 MG/2 ML IV SCH ×4 (01:56→21:37)
[2020-02-20] MEDS: CARVEDILOL 3.125 MG TABLET PO SCH ×2 (05:43→17:04)
[2020-02-20 05:56] LABS: ALBUMIN 2.8 g/dL (3.4-5.0); ANION GAP 5 mmol/L (5-15); CALCIUM 8.8 mg/dL (8.5-10.1); CHLORIDE 98 mmol/L (98-107)
[2020-02-20 06:00] LABS: ALANINE AMINOTRANSFERASE 39 U/L (12-78); ALKALINE PHOSPHATASE 175 U/L (45-117); BILIRUBIN,TOTAL 1.3 mg/dL (0.2-1.0); CREATININE 1.46 mg/dL (0.7-1.3); TOTAL PROTEIN 6.1 g/dL (6.4-8.2)
[2020-02-20] MEDS: METOLAZONE 10 MG TABLET PO SCH (08:02)
[2020-02-20] MEDS ORDERED: POTASSIUM CHLORIDE 20 MEQ TAB.ER.PRT ONE (09:17)
[2020-02-20] MEDS: ASPIRIN 81 MG TABLET EC PO SCH (09:21)
[2020-02-20] MEDS: DOCUSATE 100 MG CAPSULE PO SCH (09:21)
[2020-02-20] MEDS: CLOPIDOGREL 75 MG TABLET PO SCH (09:21)
[2020-02-20] MEDS: POTASSIUM CHLORIDE 20 MEQ TAB.ER.PRT PO SCH ×3 (09:21→17:04)
[2020-02-20] MEDS: TAMSULOSIN 0.4 MG CAP.ER.24H PO SCH (09:21)
[2020-02-20] MEDS: LORazepam 0.5MG TABLET PO PRN ×2 (14:03→21:36)
[2020-02-20] MEDS: ATORVASTATIN 40 MG TABLET PO SCH (21:36)
[2020-02-21 01:14] VITALS: BP 100/65
[2020-02-21] MEDS: FUROSEMIDE 20 MG/2 ML IV SCH (03:54)
[2020-02-21 05:51] VITALS: BP 115/70
[2020-02-21] MEDS: CARVEDILOL 3.125 MG TABLET PO SCH (05:52)
[2020-02-21 06:11] LABS: ALANINE AMINOTRANSFERASE 42 U/L (12-78); ALBUMIN 2.8 g/dL (3.4-5.0); ANION GAP 7 mmol/L (5-15); CALCIUM 8.8 mg/dL (8.5-10.1); CHLORIDE 97 mmol/L (98-107); CREATININE 1.21 mg/dL (0.7-1.3)
[2020-02-21 06:12] LABS: ALKALINE PHOSPHATASE 178 U/L (45-117); BILIRUBIN,TOTAL 1.1 mg/dL (0.2-1.0); TOTAL PROTEIN 6.1 g/dL (6.4-8.2)
[2020-02-21 07:58] VITALS: BP 102/70
[2020-02-21] MEDS ORDERED: FUROSEMIDE 40 MG TABLET PO SCH (08:00)
[2020-02-21] MEDS: DOCUSATE 100 MG CAPSULE PO SCH (08:31)
[2020-02-21] MEDS: TAMSULOSIN 0.4 MG CAP.ER.24H PO SCH (08:31)
[2020-02-21] MEDS: METOLAZONE 10 MG TABLET PO SCH (08:31)
[2020-02-21] MEDS: POTASSIUM CHLORIDE 20 MEQ TAB.ER.PRT PO SCH ×2 (08:31→12:00)
[2020-02-21] MEDS: CLOPIDOGREL 75 MG TABLET PO SCH (08:31)
[2020-02-21] MEDS: ASPIRIN 81 MG TABLET EC PO SCH (08:31)
[2020-02-21] MEDS ORDERED: ACET250T2 PO (10:10)
[2020-02-21] MEDS ORDERED: METO10TA6 PO (10:10)
[2020-02-21] MEDS ORDERED: FURO40TA6 PO (10:10)
[2020-02-21] MEDS ORDERED: CARV3.1212 PO (10:10)
[2020-02-21] MEDS ORDERED: TAMS-11 PO (10:10)
[2020-02-21] MEDS ORDERED: POTA20TA6 PO (10:10)
[2020-02-21 13:11] VITALS: BP 106/63
== END 2020-02-21 13:50 | disposition hospice, home (50) | DRG 682 ==
LOC: ED 12:35 → SUATTDRO 13:04 → EDIP 13:18 → 5SO 14:13
PROVIDERS: ADMIT Hospitalist; ATTEND Internal Medicine
PROC: 0T9B70Z Drainage of Bladder with Drainage Device, Via Natural or Artificial Opening (ICD-10-PCS; principal; 2020-02-19)
DX: N17.9 Acute kidney failure, unspecified (principal); I50.43 Acute on chronic combined systolic (congestive) and diastolic (congestive) heart failure; E87.3 Alkalosis; I24.8 Other forms of acute ischemic heart disease; I31.3 Pericardial effusion (noninflammatory); I47.2 Ventricular tachycardia; I11.0 Hypertensive heart disease with heart failure; F41.9 Anxiety disorder, unspecified; I07.1 Rheumatic tricuspid insufficiency; I25.10 Atherosclerotic heart disease of native coronary artery without angina pectoris; I27.20 Pulmonary hypertension, unspecified; I48.91 Unspecified atrial fibrillation; K76.1 Chronic passive congestion of liver; N40.0 Benign prostatic hyperplasia without lower urinary tract symptoms; M79.89 Other specified soft tissue disorders; N50.89 Other specified disorders of the male genital organs; N32.0 Bladder-neck obstruction; R31.29 Other microscopic hematuria; Z51.5 Encounter for palliative care; Z66 Do not resuscitate; Z82.49 Family history of ischemic heart disease and other diseases of the circulatory system; Z85.828 Personal history of other malignant neoplasm of skin; Z98.61 Coronary angioplasty status; Z79.899 Other long term (current) drug therapy; Z79.84 Long term (current) use of oral hypoglycemic drugs
CPT/HCPCS: 36415; 71045; 76770; 80048; 80053; 81001; 82436; 83735; 83880; 84133; 84300; 84443; 84484; 85025; 87077; 87086; 87186; 93005; 93308; 93321; 93325; 93922; 93970; 99285; G0378; J1644; J1940